=== PATIENT | female | born 1980 | race Caucasian/White ===

== ENCOUNTER 2020-09-29 15:31 | Emergency (ER) | payer MEDICAID, SELFPAY ==
[2020-09-29 15:40] VITALS: BP 131/88; PULSE 94; RESP 16; TEMP 37; O2SAT 100
--- NOTE | 2020-09-29 16:49 | ED.BACK ---
HPI - Back Pain/Injury General Chief Complaint: Extremity Injury, Upper Stated Complaint: right arm and neck pain Time Seen by Provider: 09/29/20 16:35 Source: patient and RN notes reviewed Mode of arrival: ambulatory Limitations: no limitations History of Present Illness HPI Narrative: Patient presents today complaining of a 2-day history of right neck and upper back pain. Denies any injury, trauma, recent heavy lifting, but states she did fall down some stairs approximately 10 days ago. Reports pain radiates to her right upper arm, and states she does have some numbness intermittently to the upper arm as well. Pain increases with movement of the neck as well as movement of the right arm. Currently rates her pain 06/09 and has been taking naproxen without relief. MD elicited complaint: back pain Related Data Home Medications Medication Instructions Recorded Confirmed No Home Medications 09/29/20 09/29/20 Allergies Allergy/AdvReac Type Severity Reaction Status Date / Time Penicillins Allergy Unknown Swelling Verified 09/29/20 16:01 tramadol Allergy Unknown Swelling Verified 09/29/20 16:01 Review of Systems Review of Systems: Narrative: CONSTITUTIONAL: Denies body aches, fever, chills, or sweats. EYES: Denies visual changes, redness, or discharge. ENT: Denies rhinorrhea, congestion, sore throat, or otalgia. CARDIOVASCULAR: Denies chest pain, palpitations, or edema. RESPIRATORY: Denies cough or dyspnea. GASTROINTESTINAL: Denies abdominal pain, nausea, vomiting, or diarrhea. GENITOURINARY: Denies dysuria or hematuria. SKIN: Denies rash, itching, or wounds. MUSCULOSKELETAL: Denies joint pain, or myalgia. + Right neck pain and right upper back pain NEUROLOGIC: Denies headache, numbness, tingling, or weakness. PSYCH: Denies depression or anxiety. [facility] Family History Family History (Updated 04/27/16 @ 23:19 by DOCTOR UNKNOWN) Father Hypertension Family history of diabetes mellitus in first degree relative Mother Family history of coronary artery disease Family history of throat cancer Social History Social History Alcohol intake: never Comments At time of signature, I have reviewed and agree with nursing past medical, surgical, social and family history unless otherwise noted. Please see nursing chart for further information. There is no relevant family history pertinent to the presenting complaint Exam Narrative: Exam Narrative: GENERAL: Well-appearing, well-nourished, and in moderate pain distress. HEAD: Normocephalic, atraumatic. EYES: EOMI. No redness or drainage. Conjunctivae normal. ENT: Mucous membranes pink and moist. NECK: Very limited AROM due to pain. Right cervical paraspinal muscle tenderness that extends to the right shoulder and extends downward along the scapular border. The entire right trapezius is very tender to even light touch. Patient has anterior and lateral abduction to 90 degrees with increased pain but will not try to go further due to pain. Distal sensation intact. Capillary refill normal. Radial pulse normal. CHEST: No respiratory distress. MUSCULOSKELETAL: No bony tenderness of the thoracic or lumbar spine. SKIN: Warm, dry, no rash. Capillary refill normal. Normal skin turgor. NEURO: No focal deficits. Alert and oriented x3. Gait steady. PSYCH: Normal affect. No signs of depression or anxiety. Course Vital Signs Vital signs: Vital Signs Temperature 98.6 F 09/29/20 15:40 Pulse Rate 94 09/29/20 15:40 Respiratory Rate 16 09/29/20 15:40 Blood Pressure 131/88 09/29/20 15:40 Pulse Oximetry 100 09/29/20 15:40 Temperature 98.6 F 09/29/20 15:40 Pulse Rate 94 09/29/20 15:40 Respiratory Rate 16 09/29/20 15:40 Blood Pressure 131/88 09/29/20 15:40 Pulse Oximetry 100 09/29/20 15:40 Reviewed. Pt has been instructed to follow up with her PCP regarding her elevated blood pressure today. MDM - Back Pain/Injury Differential Diag
== END 2020-09-29 16:55 | disposition home or self-care (01) ==
PROVIDERS: Emergency Provider Nurse Practitioner
DX: S46.811A Strain of other muscles, fascia and tendons at shoulder and upper arm level, right arm, initial encounter (principal); X58.XXXA Exposure to other specified factors, initial encounter
CPT/HCPCS: 99203; G0463